=== PATIENT | female | born 1960 | race Caucasian/White ===

== ENCOUNTER 2018-12-04 05:43 | Day surgery (SDC) | payer OTHER ==
[~2018-12-04] VITALS: Ht 152.4 cm; Wt 62.7 kg
[~2018-12-04 05:43] MED LIST: CYCLOPENTOLATE HCL 1% 2 ML OPHTHALMIC SOLUTION ONE; FLURBIPROFEN SODIUM 0.03% 2.5 ML OPHTHALMIC SOLUTION ONE; MOXIFLOXACIN HCL 0.5% 3 ML OPHTHALMIC SOLUTION ONE; PHENYLEPHRINE HCL 2.5% 2 ML OPHTHALMIC SOLUTION ONE; RINGERS SOLUTION,LACTATED 500 ML IV ONE; TETRACAINE HCL/PF 0.5% 4 ML OPHTHALMIC SOLUTION ONE; TROPICAMIDE 1% 2 ML OPHTHALMIC SOLUTION ONE
[2018-12-04] MEDS ORDERED: FentaNYL CITRATE-PF 100 MCG/2 ML VIAL IVP ONE (05:44)
[2018-12-04] MEDS ORDERED: MIDAZOLAM HCL 2 MG/2 ML VIAL IVP ONE (05:44)
[2018-12-04] MEDS ORDERED: RINGERS SOLUTION,LACTATED 500 ML IV ONE (06:00)
[2018-12-04] MEDS ORDERED: TETRACAINE HCL/PF 0.5% 4 ML OPHTHALMIC SOLUTION OD ONE (06:00)
[2018-12-04] MEDS: MOXIFLOXACIN HCL 0.5% 3 ML OPHTHALMIC SOLUTION OD SCH ×3 (06:31→06:41)
[2018-12-04] MEDS: TROPICAMIDE 1% 2 ML OPHTHALMIC SOLUTION OD SCH ×3 (06:31→06:41)
[2018-12-04] MEDS: PHENYLEPHRINE HCL 2.5% 2 ML OPHTHALMIC SOLUTION OD SCH ×3 (06:31→06:41)
[2018-12-04] MEDS: CYCLOPENTOLATE HCL 1% 2 ML OPHTHALMIC SOLUTION OD SCH ×3 (06:31→06:41)
[2018-12-04] MEDS: FLURBIPROFEN SODIUM 0.03% 2.5 ML OPHTHALMIC SOLUTION OD SCH ×3 (06:31→06:42)
[2018-12-04] MEDS ORDERED: BUPR200T34 PO (06:48)
[2018-12-04] MEDS ORDERED: IBUP-2071 PO (06:48)
[2018-12-04] MEDS ORDERED: CITA-106 PO (06:48)
[2018-12-04] MEDS ORDERED: SITA100 PO (06:48)
[2018-12-04] MEDS ORDERED: PANT40TA25 PO (06:48)
[2018-12-04] MEDS ORDERED: OS500 PO (06:53)
[2018-12-04] MEDS ORDERED: GABA-529 PO (06:53)
[2018-12-04] MEDS ORDERED: VITA400T9 PO (06:53)
[2018-12-04] MEDS ORDERED: FLUT44HFA IH (06:53)
[2018-12-04] MEDS ORDERED: METF500T7 PO (06:53)
[2018-12-04] MEDS ORDERED: CETI-170 PO (06:53)
[2018-12-04] MEDS ORDERED: ALBU8HFA PO (06:53)
[2018-12-04 14:01] LABS: GLUCOMETER DEV NAME(LOC) SDS.; GLUCOSE,POINT OF CARE 128 MG/DL (70-110)
== END 2018-12-04 08:35 | disposition home or self-care (01) ==
LOC: SURGERY 05:43
PROVIDERS: ATTEND Ophthalmology
DX: E11.36 Type 2 diabetes mellitus with diabetic cataract (principal); H25.11 Age-related nuclear cataract, right eye; J45.998 Other asthma; I10 Essential (primary) hypertension; Z87.01 Personal history of pneumonia (recurrent); Z86.69 Personal history of other diseases of the nervous system and sense organs; Z86.2 Personal history of diseases of the blood and blood-forming organs and certain disorders involving the immune mechanism; Z86.19 Personal history of other infectious and parasitic diseases; Z79.891 Long term (current) use of opiate analgesic; Z79.1 Long term (current) use of non-steroidal anti-inflammatories (NSAID); Z90.49 Acquired absence of other specified parts of digestive tract; Z98.51 Tubal ligation status; Z88.5 Allergy status to narcotic agent; Z79.84 Long term (current) use of oral hypoglycemic drugs; Z88.0 Allergy status to penicillin; Z98.890 Other specified postprocedural states; Z79.899 Other long term (current) drug therapy
CPT/HCPCS: 66984; 82962; 93005; C1780; J2250; J3010; J7120

== ENCOUNTER 2019-02-26 05:24 | Day surgery (SDC) | payer OTHER ==
[~2019-02-26] VITALS: Ht 154.9 cm; Wt 65.5 kg
[~2019-02-26 05:24] MED LIST changes: +ALBU8HFA PO; +BUPR200T34 PO; +CETI10TA59 PO; +CITA-106 PO; -CYCLOPENTOLATE HCL 1% 2 ML OPHTHALMIC SOLUTION ONE; -FLURBIPROFEN SODIUM 0.03% 2.5 ML OPHTHALMIC SOLUTION ONE; +FLUT44HFA IH; +GABA-529 PO; +IBUP-2071 PO; +METF500T7 PO; -MOXIFLOXACIN HCL 0.5% 3 ML OPHTHALMIC SOLUTION ONE; +OS500 PO; +PANT40TA25 PO; -PHENYLEPHRINE HCL 2.5% 2 ML OPHTHALMIC SOLUTION ONE; -RINGERS SOLUTION,LACTATED 500 ML IV ONE; -TETRACAINE HCL/PF 0.5% 4 ML OPHTHALMIC SOLUTION ONE; -TROPICAMIDE 1% 2 ML OPHTHALMIC SOLUTION ONE; +VITA400T9 PO
[2019-02-26] MEDS ORDERED: FentaNYL CITRATE-PF 100 MCG/2 ML VIAL IVP ONE (05:25)
[2019-02-26] MEDS ORDERED: MIDAZOLAM HCL 2 MG/2 ML VIAL IVP ONE (05:25)
[2019-02-26] MEDS ORDERED: RINGERS SOLUTION,LACTATED 500 ML IV ONE ×2 (05:44→06:00)
[2019-02-26] MEDS ORDERED: FLURBIPROFEN SODIUM 0.03% 2.5 ML OPHTHALMIC SOLUTION ONE (05:45)
[2019-02-26] MEDS ORDERED: TETRACAINE HCL/PF 0.5% 4 ML OPHTHALMIC SOLUTION ONE (05:45)
[2019-02-26] MEDS ORDERED: MOXIFLOXACIN HCL 0.5% 3 ML OPHTHALMIC SOLUTION ONE (05:45)
[2019-02-26] MEDS ORDERED: CYCLOPENTOLATE HCL 1% 2 ML OPHTHALMIC SOLUTION ONE (05:46)
[2019-02-26] MEDS ORDERED: PHENYLEPHRINE HCL 2.5% 2 ML OPHTHALMIC SOLUTION ONE (05:46)
[2019-02-26] MEDS ORDERED: TROPICAMIDE 1% 2 ML OPHTHALMIC SOLUTION ONE (05:47)
[2019-02-26] MEDS: PHENYLEPHRINE HCL 2.5% 2 ML OPHTHALMIC SOLUTION OS SCH ×3 (06:37→06:58)
[2019-02-26] MEDS: FLURBIPROFEN SODIUM 0.03% 2.5 ML OPHTHALMIC SOLUTION OS SCH ×3 (06:37→06:58)
[2019-02-26] MEDS: TROPICAMIDE 1% 2 ML OPHTHALMIC SOLUTION OS SCH ×3 (06:37→06:58)
[2019-02-26] MEDS: CYCLOPENTOLATE HCL 1% 2 ML OPHTHALMIC SOLUTION OS SCH ×3 (06:37→06:58)
[2019-02-26] MEDS: MOXIFLOXACIN HCL 0.5% 3 ML OPHTHALMIC SOLUTION OS SCH ×3 (06:37→06:58)
[2019-02-26] MEDS ORDERED: ACETAMINOPHEN 325 MG TABLET PO PRN (07:00)
[2019-02-26] MEDS ORDERED: TETRACAINE HCL/PF 0.5% 4 ML OPHTHALMIC SOLUTION OS ONE (07:00)
[2019-02-26 07:04] LABS: GLUCOMETER DEV NAME(LOC) SDS.; GLUCOSE,POINT OF CARE 124 MG/DL (70-110)
[2019-02-26] MEDS ORDERED: MAGN250T10 PO (07:31)
[2019-02-26] MEDS ORDERED: POLY119P17 PO (07:31)
[2019-02-26] MEDS ORDERED: AZEL6DRO5 OU (07:35)
[2019-02-26] MEDS ORDERED: CYAN500 PO (07:35)
[2019-02-26] MEDS ORDERED: LACT1CAP70 PO (07:35)
[2019-02-26] MEDS ORDERED: OXYM30SP27 NASAL (07:35)
[2019-02-26] MEDS ORDERED: THIA100T67 PO (07:35)
[2019-02-26] MEDS ORDERED: FISH1CAP27 PO (07:35)
[2019-02-26] MEDS ORDERED: VITAD50000 PO (07:35)
== END 2019-02-26 09:15 | disposition home or self-care (01) ==
LOC: SURGERY 05:24
PROVIDERS: ATTEND Ophthalmology
DX: E11.36 Type 2 diabetes mellitus with diabetic cataract (principal); I10 Essential (primary) hypertension; J45.909 Unspecified asthma, uncomplicated; F32.9 Major depressive disorder, single episode, unspecified; Z88.0 Allergy status to penicillin
CPT/HCPCS: 66984; 82962; C1780; J2250; J3010; J7120